=== PATIENT | male | born 1985 | race Caucasian/White ===

== ENCOUNTER 2018-07-21 13:47 | Emergency (ER) | payer SELFPAY ==
[~2018-07-21] VITALS: Ht 167.6 cm; Wt 66.0 kg
[2018-07-21] MEDS ORDERED: SODIUM CHLORIDE 0.9% 1,000 ML IV ONE (14:34)
[2018-07-21] MEDS ORDERED: LORAZEPAM 2MG/ML CPJ IM ONE (14:45)
[2018-07-21] MEDS ORDERED: HALOPERIDOL LACTATE 5MG/ML VIAL IM ONE (14:45)
[2018-07-21 15:31] LABS: BASOPHILS % 1.4 % (0.0-2.0); EOSINOPHILS % 1.5 % (0.0-5.0); HEMOGLOBIN. 12.8 g/dL (14.0-18.0); LYMPHOCYTES % 36.2 % (20.0-50.0); MEAN CORPUSCULAR HEMOGLOBIN 30.6 pg (28.0-32.0); MEAN CORPUSCULAR VOLUME 90.7 fL (80.0-94.0); MEAN PLATELET VOLUME 7.4 fl (7.4-10.4); MONOCYTES % 4.9 % (2.0-8.0); PLATELET 287 x1000/uL (130-400); RED BLOOD CELL COUNT 4.19 mill/uL (4.7-6.1); RED CELL DISTRIBUTION WIDTH 13.6 % (11.6-14.6)
[2018-07-21 15:37] LABS: CHLORIDE 106 mEq/L (98-107)
[2018-07-21 16:14] LABS: ETHANOL BLOOD 335 mg/dL
[2018-07-21] MEDS ORDERED: KCL 10MEQ/50ML PREMIX 50 ML IV ONE (16:45)
[2018-07-21 17:11] LABS: CLARITY URINE CLEAR (CLEAR); COLOR URINE YELLOW (YELLOW); KETONES URINE NEGATIVE (NEGATIVE); LEUKOCYTE ESTERASE URINE NEGATIVE (NEGATIVE); NITRITE URINE NEGATIVE (NEGATIVE); OCCULT BLOOD URINE NEGATIVE (NEGATIVE); PH URINE 5.5 (4.5-8.0); PROTEIN URINE NEGATIVE (NEGATIVE); SPECIFIC GRAVITY URINE 1.002 (1.005-1.030); UROBILINOGEN URINE 0.2 E.U./dL (0.2-1.0)
[2018-07-21 17:33] LABS: *AMPHETAMINES SCREEN URINE NEGATIVE (NEGATIVE); *BARBITURATES SCREEN URINE NEGATIVE (NEGATIVE); *BENZODIAZEPINES SCREEN URINE NEGATIVE (NEGATIVE); *COCAINE SCREEN URINE NEGATIVE (NEGATIVE); METHADONE URINE SCREEN NEGATIVE (NEGATIVE)
[2018-07-21 17:34] LABS: CANNABINOID URINE SCREEN NEGATIVE (NEGATIVE); OPIATES URINE SCREEN NEGATIVE (NEGATIVE); PHENCYCLIDINE URINE SCREEN NEGATIVE (NEGATIVE)
[2018-07-22 04:41] VITALS: BP 109/79
== END 2018-07-22 05:15 | disposition home or self-care (01) ==
LOC: EDBD 14:26 → ER 14:26
DX: F10.229 Alcohol dependence with intoxication, unspecified (principal); E87.6 Hypokalemia; Y90.8 Blood alcohol level of 240 mg/100 ml or more; Z87.820 Personal history of traumatic brain injury; Z78.1 Physical restraint status
CPT/HCPCS: 36415; 70450; 80053; 80305; 80307; 80329; 81003; 85025; 93005; 96361; 96365; 96372; 99285; G0482; J1630; J2060; J3480; J7030